=== PATIENT | male | born 1985 | race Caucasian/White ===

== ENCOUNTER 2018-02-03 00:09 | Emergency (ER) | payer MEDICAID ==
--- NOTE | 2018-02-03 01:57 | EDM.PDOC ---
ED HPI GENERAL MEDICAL PROBLEM - General Chief Complaint: Abdominal Pain Stated Complaint: ABDOMINAL PAIN Time Seen by Provider: 02/03/18 01:40 Source of Information: Reports: Patient, Family History Limitations: Reports: No Limitations - History of Present Illness INITIAL COMMENTS - FREE TEXT/NARRATIVE: 32-year-old male who is been having recurring abdominal pain for the past 2 months. He has had workups and testing including labs, was started on Paxil and Xanax several days ago. Tonight when he was really worked up he took a Xanax and he was feeling better by the time he got to the emergency room. No nausea or vomiting. Mostly a cramping sensation of the abdomen. Bowels are active but not diarrhea. No fevers or chills, no back pain. Onset: Unknown/Unsure Severity: Moderate Associated Symptoms: Reports: Loss of Appetite, Malaise. Denies: Chest Pain, Cough, Nausea/Vomiting Epigastric Pain Score (Numeric/FACES): 4 - Related Data Allergies Allergy/AdvReac Type Severity Reaction Status Date / Time No Known Allergies Allergy Verified 02/03/18 01:28 Home Meds: Home Meds ALPRAZolam [Alprazolam] 0.5 tab PO TID PRN 02/03/18 [History] PARoxetine HCl [Paroxetine HCl] 10 mg PO DAILY 02/03/18 [History] Past Medical History Musculoskeletal History: Reports: Fracture Psychiatric History: Reports: Panic Attack - Infectious Disease History Infectious Disease History: Reports: Chicken Pox - Past Surgical History GI Surgical History: Reports: Hernia, Abdominal Social & Family History - Tobacco Use Smoking Status *Q: Current Every Day Smoker Years of Tobacco use: 15 Packs/Tins Daily: 0.5 - Caffeine Use Caffeine Use: Reports: None - Recreational Drug Use Recreational Drug Use: No ED ROS GENERAL - Review of Systems Review Of Systems: See Below Constitutional: Reports: Malaise. Denies: Fever, Chills Respiratory: Reports: Shortness of Breath Cardiovascular: Denies: Chest Pain GI/Abdominal: Reports: Abdominal Pain, Nausea. Denies: Constipation, Diarrhea, Vomiting : Reports: No Symptoms Musculoskeletal: Reports: No Symptoms Skin: Reports: No Symptoms Neurological: Reports: Dizziness. Denies: Headache Psychiatric: Reports: Anxiety ED EXAM, GI/ABD - Physical Exam Exam: See Below Exam Limited By: No Limitations General Appearance: Alert, No Apparent Distress Eyes: Bilateral: Normal Appearance Respiratory/Chest: No Respiratory Distress, Lungs Clear GI/Abdominal Exam: Soft, Other (Some tenderness across the epigastric area only , no guarding) Course - Vital Signs Last Recorded V/S: Last Vital Signs Temp 96.6 F 02/03/18 01:24 Pulse 71 02/03/18 01:24 Resp 18 02/03/18 01:24 BP 149/83 H 02/03/18 01:24 Pulse Ox 97 02/03/18 01:24 - Orders/Labs/Meds Orders: Active Orders 24 hr Category Date Time Status Abdomen Pelvis w Cont [CT] Stat Exams 02/03/18 01:52 Taken Labs: Laboratory Tests 02/03/18 02/03/18 Range/Units 02:01 02:01 WBC 10.1 (4.5-11.0) K/uL RBC 4.96 (4.30-5.90) M/uL Hgb 14.1 (12.0-15.0) g/dL Hct 41.6 (40.0-54.0) % MCV 84 (80-98) fL MCH 28 (27-31) pg MCHC 34 (32-36) % Plt Count 268 (150-400) K/uL Neut % (Auto) 70 H (36-66) % Lymph % (Auto) 16 L (24-44) % [place] % (Auto) 12 H (2-6) % Eos % (Auto) 2 (2-4) % Baso % (Auto) 0 (0-1) % ESR 10 (0-20) mm/hr C-Reactive Protein 0.09 (0.0-0.3) mg/dL Meds: Medications Discontinued Medications Generic Name Dose Route Start Last Admin Trade Name Freq PRN Reason Stop Dose Admin Sodium Chloride 1,000 mls @ 500 mls/hr 02/03/18 02:00 02/03/18 02:10 Normal Saline IV 500 mls/hr ASDIRECTED SIS Administration Sodium Chloride 80 mls @ 3 mls/sec 02/03/18 02:00 02/03/18 02:21 Normal Saline IV 3 mls/sec ASDIRECTED SIS Administration Iopamidol 126 ml 02/03/18 02:00 02/03/18 02:21 Isovue-300 (61%) IV 126 ml . DIRECTED SIS Administration Sodium Chloride 10 ml 02/03/18 01:58 02/03/18 02:21 Saline Flush FLUSH 10 ml ASDIRECTED PRN Administration Keep Vein Open - Re-Assessments/Exams Free Text/Narrative Re-Assessment/Exam: 02/03/18 03:06 After discussion of the treatments and previous workups, we agreed to draw a CRP , sedimentation rate, and run a CT scan of the abdomen and pelvis with IV contrast. He was given 1 L of normal saline while the tests were drawn. He remained fairly comfortable and had no recurrence of the pain. His labs and CT were completely normal. Departure - Departure Time of Disposition: 03:15 Disposition: Home, Self-Care 01 Condition: Good Clinical Impression: Anxiety Abdominal pain Qualifiers: Abdominal location: upper abdomen, unspecified Qualified Code(s): R10.10 - Upper abdominal pain, unspecified - Discharge Information Instructions: Panic Attacks, [id number] Referrals: Chai Bryant [employer] [Primary Care Provider] - Forms: ED Department Discharge Care Plan Goals: Continue with your current medications and diet as tolerated. Recheck next week to discuss an EGD or other options if symptoms are not improving satisfactorily. - My Orders Last 24 Hours: My Active Orders 02/03/18 01:52 Abdomen Pelvis w Cont [CT] Stat - Assessment/Plan Last 24 Hours: My Active Orders 02/03/18 01:52 Abdomen Pelvis w Cont [CT] Stat
[2018-02-03] MEDS ORDERED: Sodium Chloride 0.9% 10 ML Syringe FLUSH PRN (01:58)
[2018-02-03] MEDS ORDERED: Iopamidol 612 MG/ML 150 ML Bottle IV SCH (02:00)
[2018-02-03] MEDS ORDERED: Sodium Chloride 0.9% 1,000 ML IV SCH (02:00)
[2018-02-03] MEDS ORDERED: Sodium Chloride 0.9% 80 ML IV SCH (02:00)
== END 2018-02-03 03:25 | disposition home or self-care (01) ==
LOC: JP.ED 00:09
DX: R10.13 Epigastric pain (principal); R10.10 Upper abdominal pain, unspecified; F41.9 Anxiety disorder, unspecified; F17.210 Nicotine dependence, cigarettes, uncomplicated
CPT/HCPCS: 36415; 74177; 85025; 85651; 86140; 96360; 99284; J7030; J7040; J7050

== ENCOUNTER 2018-03-01 15:55 | Emergency (ER) | payer MEDICAID ==
--- NOTE | 2018-03-01 16:24 | EDM.PDOC ---
ED HPI GENERAL MEDICAL PROBLEM - General Chief Complaint: Chest Pain Stated Complaint: CHEST PAINS Time Seen by Provider: 03/01/18 16:05 Source of Information: Reports: Patient, Old Records, RN History Limitations: Reports: No Limitations - History of Present Illness INITIAL COMMENTS - FREE TEXT/NARRATIVE: 32 yo male 1 ppd smoker with a strong FHx of CAD presents with sharp L sided chest pain for a couple hrs. In the past when he has had this it has been attributed to anxiety and he was prescribed Xanax. He took some before coming to the ER today and is improved, but not resolved of this pain. 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 No change with pressing on chest or deep breathing. 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) (Xanax x 2 doses) - Related Data Allergies Allergy/AdvReac Type Severity Reaction Status Date / Time No Known Allergies Allergy Verified 03/01/18 16:11 Home Meds: Home Meds ALPRAZolam [Alprazolam] 0.5 tab PO TID PRN 02/03/18 [History] PARoxetine HCl [Paroxetine HCl] 10 mg PO BEDTIME 02/03/18 [History] Past Medical History Musculoskeletal History: Reports: Fracture Psychiatric History: Reports: Panic Attack - Infectious Disease History Infectious Disease History: Reports: Chicken Pox - Past Surgical History GI Surgical History: Reports: Hernia, Abdominal Social & Family History - Tobacco Use Smoking Status *Q: Current Every Day Smoker Years of Tobacco use: 15 Packs/Tins Daily: 0.5 - Caffeine Use Caffeine Use: Reports: None - Recreational Drug Use Recreational Drug Use: No ED ROS GENERAL - Review of Systems Review Of Systems: See Below Constitutional: Reports: No Symptoms HEENT: Reports: No Symptoms Respiratory: Reports: No Symptoms Cardiovascular: Reports: Chest Pain GI/Abdominal: Reports: No Symptoms : Reports: No Symptoms Musculoskeletal: Reports: No Symptoms Skin: Reports: No Symptoms Neurological: Reports: No Symptoms Psychiatric: Reports: Other (not anxious now after Xanax) ED EXAM, GENERAL - Physical Exam Exam: See Below Exam Limited By: No Limitations General Appearance: Alert, WD/WN, No Apparent Distress Eye Exam: Bilateral Eye: Normal Inspection Ears: Normal External Exam, Normal Canal, Hearing Grossly Normal, Normal TMs Ear Exam: Bilateral Ear: Auricle Normal, Canal Normal Nose: Normal Inspection, Normal Mucosa, No Blood Throat/Mouth: Normal Inspection, Normal Lips, Normal Oropharynx, Normal Voice, No Airway Compromise Head: Atraumatic, Normocephalic Neck: Normal Inspection Respiratory/Chest: No Respiratory Distress, Lungs Clear, Normal Breath Sounds, No Accessory Muscle Use, Chest Non-Tender Cardiovascular: Regular Rate, Rhythm, No Edema GI/Abdominal: Normal Bowel Sounds, Soft, Non-Tender, No Distention Extremities: Normal Inspection, Normal Range of Motion, Non-Tender, No Pedal Edema Neurological: Alert, Oriented, CN II-XII Intact, Normal Cognition, No Motor/ Sensory Deficits Psychiatric: Normal Affect, Normal Mood Skin Exam: Warm, Dry, Intact, Normal Color, No Rash Lymphatic: No Adenopathy EKG INTERPRETATION EKG Date: 03/01/18 Time: 16:10 Rhythm: NSR Rate (Beats/Min): 69 Squire: Normal P-Wave: Present QRS: Normal ST-T: Normal QT: Normal Comparison: NA - No Prior EKG Course - Vital Signs Last Recorded V/S: Last Vital Signs Temp 35.1 C L 03/01/18 16:40 Pulse 69 03/01/18 16:40 Resp 13 03/01/18 16:40 BP 127/79 03/01/18 16:40 Pulse Ox 98 03/01/18 16:40 - Orders/Labs/Meds Orders: Active Orders 24 hr Category Date Time Status Cardiac Monitoring [RC] .As Directed Care 03/01/18 16:12 Active EKG Documentation Completion [RC] ASDIRECTED Care 03/01/18 16:12 Active EKG 12 Lead [EK] Routine Ther 03/01/18 16:12 Ordered Labs: Laboratory Tests 03/01/18 Range/Units 16:19 Troponin I < 0.017 (0.000-0.056) ng/mL Departure - Departure Time of Disposition: 17:15 Disposition: Home, Self-Care 01 Condition: Good Clinical Impression: Atypical chest pain Referrals: Chai Bryant NP [Primary Care Provider] - Forms: ED Department Discharge - My Orders Last 24 Hours: My Active Orders 03/01/18 16:12 Cardiac Monitoring [RC] .As Directed EKG Documentation Completion [RC] ASDIRECTED EKG 12 Lead [EK] Routine - Assessment/Plan Last 24 Hours: My Active Orders 03/01/18 16:12 Cardiac Monitoring [RC] .As Directed EKG Documentation Completion [RC] ASDIRECTED EKG 12 Lead [EK] Routine
[2018-03-01] MEDS ORDERED: Aspirin 81 MG Tab.Chew PO ONE (17:09)
== END 2018-03-01 17:30 | disposition home or self-care (01) ==
LOC: JP.ED 15:55
DX: R07.89 Other chest pain (principal); F17.210 Nicotine dependence, cigarettes, uncomplicated; Z79.899 Other long term (current) drug therapy
CPT/HCPCS: 36415; 84484; 93005; 99285; A9270

== ENCOUNTER 2018-03-21 07:52 | Day surgery (SDC) | payer MEDICAID ==
[2018-03-21] MEDS ORDERED: Scopolamine 1.5 MG Transdermal Patch TOP ONE (08:15)
[2018-03-21] MEDS ORDERED: Dextrose 5%-Lactated Ringers 1,000 ML IV SCH (08:30)
[2018-03-21] MEDS ORDERED: cefOXitin 2 GM in Sodium Chloride 0.9% 50 ML IV ONE (09:30)
[2018-03-21] MEDS ORDERED: Bupivacaine 0.5% 50 ML MDV ONE (10:26)
[2018-03-21] MEDS ORDERED: Lidocaine 1% with EPINEPHrine 1:100,000 50 ML MDV ONE (10:27)
[2018-03-21] MEDS ORDERED: fentaNYL 250 MCG/5 ML SDV ONE ×2 (10:46→12:16)
[2018-03-21] MEDS ORDERED: Midazolam 1 MG/ML 2 ML SDV ONE (10:46)
[2018-03-21] MEDS ORDERED: Dexamethasone 4 MG/ML SDV ONE (12:04)
[2018-03-21] MEDS ORDERED: Neostigmine Methylsulfate 1 MG/ML 5 ML Syringe ONE (12:04)
[2018-03-21] MEDS ORDERED: Propofol 200 MG/20 ML SDV ONE (12:04)
[2018-03-21] MEDS ORDERED: Ondansetron 4 MG/2 ML SDV ONE (12:04)
[2018-03-21] MEDS ORDERED: Rocuronium 50 MG/5 ML Vial ONE (12:04)
[2018-03-21] MEDS ORDERED: Glycopyrrolate 0.2 MG/ML 5 ML MDV ONE (12:04)
[2018-03-21] MEDS ORDERED: hydrOXYzine HCl 100 MG/2 ML SDV IM ONE (12:57)
[2018-03-21] MEDS ORDERED: ALPRAZolam 0.5 MG Tab PO PRN (13:23)
[2018-03-21] MEDS ORDERED: Docusate Sodium 100 MG Cap PO PRN (13:24)
[2018-03-21] MEDS ORDERED: Ondansetron 4 MG/2 ML SDV IVPUSH PRN (13:24)
[2018-03-21] MEDS ORDERED: fentaNYL 100 MCG/2 ML SDV IVPUSH PRN (13:24)
--- NOTE | 2018-03-21 14:25 | OR ---
DATE OF PROCEDURE: 03/21/2018 PREOPERATIVE DIAGNOSIS: Chronic cholecystitis with biliary dyskinesia. POSTOPERATIVE DIAGNOSIS: Chronic cholecystitis with biliary dyskinesia. PROCEDURE: Laparoscopic cholecystectomy. SURGEON: Alok Delgadillo MD. ANESTHESIA: General Endotracheal. INDICATION: This 32-year-old white male has been complaining of intermittent episodes of epigastric and right upper quadrant abdominal pain radiating to his back. He had an abdominal ultrasound which was unremarkable. A CCK-stimulated HIDA scan was abnormal with an ejection fraction of only 27%, consistent with biliary dyskinesia and chronic cholecystitis. He is admitted for a laparoscopic cholecystectomy. I counseled him for surgery including risks and alternatives, and he gave his informed consent to proceed. DESCRIPTION OF PROCEDURE: After adequate general endotracheal anesthesia was obtained, the patient's abdomen was prepped and draped in the usual sterile fashion. Time-out was held. An infraumbilical semicircular incision was made. Under direct vision, a 12-mm port was introduced into the abdomen using the Optiview technique. The camera was introduced into the abdomen and the abdomen was insufflated to a pressure of 20 mmHg with carbon dioxide. No evidence of intraabdominal injury was seen. Under direct vision, a 12-mm port was placed in the epigastrium and a 5-mm port was placed in the right lower quadrant. The abdomen was examined, there were some adhesions in the right lower quadrant. The appendix appeared unremarkable. There were also adhesions of omentum to the gallbladder consistent with chronic cholecystitis. The omentum was dissected free from the gallbladder. The cystic duct and arteries were dissected free. They were each clipped separately up in the gallbladder and three times proximally for the duct and twice for the artery. They were then divided up near the gallbladder. The gallbladder was then dissected free from the gallbladder bed using Bovie electrocautery. The gallbladder was placed in a sample retrieval bag and elevated up through the anterior abdominal wall via the epigastric port site. It was cultured and delivered from the field. The epigastric port was reduced back into the abdomen. The gallbladder bed was irrigated and suctioned dry. All looked well. The fascial closure device was used to place an 0 Vicryl stitch in the epigastric fascial defect. The infraumbilical port was removed with an interrupted stitch of 0 Vicryl used to close this fascial defect. We evacuated as much CO2 as we could from the abdomen via the 5-mm port site in the right lower quadrant and then this port was removed. Lidocaine 1% with epinephrine in a 50:50 mixed with 0.5% Marcaine was infiltrated about all incisions. 4-0 Vicryl, using a subcuticular stitch, was placed to approximate the skin of the incisions. Dermabond was applied. The anesthesia was reversed. He was extubated and brought to recovery room in good condition. Alok Delgadillo MD /[id number] MTDD
[2018-03-21] MEDS: Acetaminophen/HYDROcodone 325-5 MG Tab PO PRN ×2 (16:37→21:53)
[2018-03-21] MEDS ORDERED: PARoxetine 20 MG Tab PO SCH (21:00)
[2018-03-22] MEDS: Acetaminophen/HYDROcodone 325-5 MG Tab PO PRN ×2 (06:00→10:07)
--- NOTE | 2018-03-22 06:39 | PCM.SURGPN ---
- General Info Date of Service: 03/22/18 Date of Surgery/Procedure: 03/21/18 POD#: 1 Functional Status: Reports: Tolerating Diet, Ambulating, Urinating, Incentive Spirometry. Denies: Pain Controlled - Review of Systems General: Reports: No Symptoms HEENT: Reports: No Symptoms Pulmonary: Reports: No Symptoms Cardiovascular: Reports: No Symptoms Gastrointestinal: Reports: Abdominal Pain (Pain associated with epigastric incision. ) Genitourinary: Reports: No Symptoms Musculoskeletal: Reports: No Symptoms Skin: Reports: No Symptoms Neurological: Reports: No Symptoms Psychiatric: Reports: No Symptoms - Patient Data Vitals - Most Recent: Last Vital Signs Temp 96.5 F 03/22/18 00:15 Pulse 67 03/22/18 00:15 Resp 16 03/22/18 00:15 BP 124/63 03/22/18 00:15 Pulse Ox 96 03/22/18 00:15 Weight - Most Recent: 175 lb I&O - Last 24 Hours: Intake & Output 03/21/18 03/21/18 03/22/18 14:59 22:59 06:59 Intake Total 275 620 Balance 275 620 Lab Results Last 24 Hrs: Laboratory Results - last 24 hr 03/21/18 03/22/18 03/22/18 Range/Units 17:00 05:11 05:11 WBC 10.4 10.1 (4.5-11.0) K/uL RBC 5.15 4.96 (4.30-5.90) M/uL Hgb 14.5 13.9 (12.0-15.0) g/dL Hct 43.5 42.2 (40.0-54.0) % MCV 85 85 (80-98) fL MCH 28 28 (27-31) pg MCHC 33 33 (32-36) % Plt Count 323 328 (150-400) K/uL Total Bilirubin 0.5 (0.2-1.0) mg/dL Alkaline Phosphatase 66 (46-116) U/L Hemanth Results Last 24 Hrs: Microbiology 03/21/18 12:56 Gram Stain - Final Gallbladder Med Orders - Current: Current Medications Hydrocodone Bitart/Acetaminophen ([place] 325-5 Mg) 2 tab PO Q4H PRN PRN Reason: Pain (moderate 4-6) Last Admin: 03/22/18 06:00 Dose: 2 tab Alprazolam (Xanax) 0.5 - 1 mg PO TID PRN PRN Reason: Anxiety Last Admin: 03/21/18 21:58 Dose: 0.5 mg Docusate Sodium (Colace) 100 mg PO BID PRN PRN Reason: Congestion Fentanyl (Sublimaze) 50 mcg IVPUSH Q1H PRN PRN Reason: Pain (severe 7-10) Dextrose/Lactated Ringer's (Dextrose 5%-Lactated Ringers) 1,000 mls @ 100 mls/ hr IV ASDIRECTED [facility] Last Admin: 03/21/18 08:54 Dose: 100 mls/hr Ondansetron HCl (Zofran) 4 mg IVPUSH Q4H PRN PRN Reason: Nausea/Vomiting Pantoprazole Sodium (Protonix) 40 mg PO DAILY@0730 [facility] Paroxetine HCl (Paxil) 10 mg PO BEDTIME [facility] Last Admin: 03/21/18 21:09 Dose: Not Given Discontinued Medications Bupivacaine HCl (Marcaine 0.5%) Confirm Administered Dose 50 ml .ROUTE .STK-MED ONE Stop: 03/21/18 10:27 Last Admin: 03/21/18 12:22 Dose: 10 ml Dexamethasone (Dexamethasone) Confirm Administered Dose 4 mg .ROUTE .STK-MED ONE Stop: 03/21/18 12:05 Fentanyl (Sublimaze) Confirm Administered Dose 250 mcg .ROUTE .STK-MED ONE Stop: 03/21/18 10:47 Fentanyl (Sublimaze) Confirm Administered Dose 250 mcg .ROUTE .STK-MED ONE Stop: 03/21/18 12:17 Glycopyrrolate (Robinul) Confirm Administered Dose 1 mg .ROUTE .STK-MED ONE Stop: 03/21/18 12:05 Hydroxyzine HCl (Vistaril) 75 mg IM ONETIME ONE Stop: 03/21/18 12:58 Last Admin: 03/21/18 13:13 Dose: 75 mg Cefoxitin Sodium 2 gm/ Sodium (Chloride) 50 mls @ 100 mls/hr IV ONETIME ONE Stop: 03/21/18 09:59 Last Admin: 03/21/18 12:17 Dose: 100 mls/hr Lidocaine/Epinephrine (Xylocaine 1% With Epinephrine 1:100,000) Confirm Administered Dose 50 ml .ROUTE .STK-MED ONE Stop: 03/21/18 10:28 Last Admin: 03/21/18 12:23 Dose: 10 ml Midazolam HCl (Versed 1 Mg/Ml) Confirm Administered Dose 2 mg .ROUTE .STK-MED ONE Stop: 03/21/18 10:47 Neostigmine Methylsulfate (Neostigmine) Confirm Administered Dose 5 mg .ROUTE .STK-MED ONE Stop: 03/21/18 12:05 Ondansetron HCl (Zofran) Confirm Administered Dose 4 mg .ROUTE .STK-MED ONE Stop: 03/21/18 12:05 Propofol (Diprivan 20 Ml) Confirm Administered Dose 200 mg .ROUTE .STK-MED ONE Stop: 03/21/18 12:05 Rocuronium [place] (Zemuron) Confirm Administered Dose 50 mg .ROUTE .STK-MED ONE Stop: 03/21/18 12:05 Scopolamine (Transderm-Scop) 1.5 mg TOP ONETIME ONE Stop: 03/21/18 08:16 Last Admin: 03/21/18 08:05 Dose: 1.5 mg - Exam Wound/Incisions: Healing Well, No Drainage General: Alert, Oriented, Cooperative, Mild Distress Lungs: Clear to Auscultation, Normal Respiratory Effort Cardiovascular: Regular Rate, Regular Rhythm GI/Abdominal Exam: Normal Bowel Sounds, Soft, No Distention Extremities: Normal Inspection Skin: Warm, Dry, Intact Psy/Mental Status: Alert, Normal Affect, Normal Mood - Problem List & Annotations (1) Abdominal pain SNOMED Code(s): 64740630 Code(s): R10.9 - UNSPECIFIED ABDOMINAL PAIN Status: Acute Current Visit: No - Problem List Review Problem List Initiated/Reviewed/Updated: Yes - My Orders Last 24 Hours: Active Orders 24 hr Category Date Time Status Patient Status [ADT] Routine ADT 03/21/18 13:24 Active Ambulate [RC] ASDIRECTED Care 03/21/18 13:24 Active Antiembolic Devices [RC] .Routine Care 03/21/18 13:29 Active Dorsiflex/Plantar flex x 10 [RC] QSHIFT Care 03/21/18 13:24 Active Head of Bed Elevation [RC] CONTINUOUS Care 03/21/18 13:24 Active Intake and Output [RC] Q12H Care 03/21/18 13:27 Active Notify Provider Vital Signs [RC] PRN Care 03/21/18 13:27 Active Oxygen Therapy [RC] PRN Care 03/21/18 13:24 Active Pneumonia Education [RC] .PRN Care 03/21/18 13:24 Active RT Incentive Spirometry [RC] Q1HWA Care 03/21/18 13:24 Active Turn, Cough, Deep Breathe [RC] Q1HWA Care 03/21/18 13:24 Active Up to Chair [RC] TIDMEALS Care 03/21/18 13:24 Active VTE/DVT Education [RC] .PRN Care 03/21/18 13:29 Active Vital Signs [RC] PER UNIT ROUTINE Care 03/21/18 13:24 Active Respiratory Care Assess and Treatment [CONS] Routine Cons 03/21/18 13:24 Active Advance Diet Instructions [DIET] Diet 03/21/18 Lunch Active CULTURE ANAEROBIC [RM] Routine Lab 03/21/18 12:56 Received CULTURE WOUND + SMEAR [RM] Routine Lab 03/21/18 12:56 Results ALPRAZolam [Xanax] Med 03/21/18 13:23 Active 0.5 - 1 mg PO TID PRN Acetaminophen/HYDROcodone [[place] 325-5 MG] Med 03/21/18 13:24 Active 2 tab PO Q4H PRN Dextrose 5%-Lactated Ringers 1,000 ml Med 03/21/18 08:30 Active IV ASDIRECTED Docusate Sodium [Colace] Med 03/21/18 13:24 Active 100 mg PO BID PRN Ketorolac [Toradol] Med 03/22/18 06:45 Ordered 10 mg PO Q6H Ondansetron [Zofran] Med 03/21/18 13:24 Active 4 mg IVPUSH Q4H PRN PARoxetine [Paxil] Med 03/21/18 21:00 Active 10 mg PO BEDTIME Pantoprazole [ProTONIX] Med 03/22/18 07:30 Active 40 mg PO DAILY@0730 fentaNYL [Sublimaze] Med 03/21/18 13:24 Active 50 mcg IVPUSH Q1H PRN Abdominal Binder [OM.PC] Per Unit Routine Oth 03/21/18 13:27 Ordered DVT/VTE Prophylaxis Reflex [OM.PC] Routine Oth 03/21/18 13:24 Ordered Oral Care [OM.PC] BID Oth 03/21/18 13:30 Ordered Oral Care [OM.PC] BID Oth 03/22/18 13:30 Ordered Oral Care [OM.PC] BID Oth 03/23/18 13:30 Ordered Oral Care [OM.PC] BID Oth 03/24/18 13:30 Ordered Oral Care [OM.PC] BID Oth 03/25/18 13:30 Ordered Oral Care [OM.PC] BID Oth 03/26/18 13:30 Ordered Oral Care [OM.PC] BID Oth 03/27/18 13:30 Ordered Oral Care [OM.PC] BID Oth 03/28/18 13:30 Ordered Oral Care [OM.PC] BID Oth 03/29/18 13:30 Ordered Oral Care [OM.PC] BID Oth 03/30/18 13:30 Ordered Sequential Compression Device [OM.PC] Routine Oth 03/21/18 08:00 Ordered Sequential Compression Device [OM.PC] Routine Oth 03/21/18 13:24 Ordered Resuscitation Status Routine Resus Stat 03/21/18 13:24 Ordered Medication Orders Hydrocodone Bitart/Acetaminophen ([place] 325-5 Mg) 2 tab PO Q4H PRN PRN Reason: Pain (moderate 4-6) Last Admin: 03/22/18 06:00 Dose: 2 tab Admin: 03/21/18 21:53 Dose: 2 tab Admin: 03/21/18 16:37 Dose: 2 tab Alprazolam (Xanax) 0.5 - 1 mg PO TID PRN PRN Reason: Anxiety Last Admin: 03/21/18 21:58 Dose: 0.5 mg Docusate Sodium (Colace) 100 mg PO BID PRN PRN Reason: Congestion Fentanyl (Sublimaze) 50 mcg IVPUSH Q1H PRN PRN Reason: Pain (severe 7-10) Dextrose/Lactated Ringer's (Dextrose 5%-Lactated Ringers) 1,000 mls @ 100 mls/ hr IV ASDIRECTED SIS Last Admin: 03/21/18 08:54 Dose: 100 mls/hr Ondansetron HCl (Zofran) 4 mg IVPUSH Q4H PRN PRN Reason: Nausea/Vomiting Pantoprazole Sodium (Protonix) 40 mg PO DAILY@0730 [facility] Paroxetine HCl (Paxil) 10 mg PO BEDTIME [facility] Last Admin: 03/21/18 21:09 Dose: Not Given - Assessment Assessment (Free Text/Narrative):: He appears to be doing well but complains of severe pain at his epigastric incision site. His labs and vital signs appear well. - Plan Plan (Free Text/Narrative):: Try Toradol to see if he can achieve good pain relief and be discharged.
[2018-03-22] MEDS ORDERED: Ketorolac 10 MG Tab PO SCH ×2 (07:00→08:00)
[2018-03-22] MEDS ORDERED: Pantoprazole 40 MG Tab.CR PO SCH (07:30)
--- NOTE | 2018-03-23 13:26 | PCM.DCSUM1 ---
Discharge Summary - Hospital Course Free Text/Narrative:: This 32 year old white male complains of upper abdominal pain which radiates into his back associated with nausea. Food makes it worse. Abdominal ultrasound was unremarkable. A CCK stimulated HIDA scan was abnormal with an ejection fraction of 27%. He was admitted for a laparoscopic cholecystectomy. He was kept over night and the next was doing fine and was discharged. Brief History: See above narrative. - Discharge Data Discharge Date: 03/22/18 Discharge Disposition: Home, Self-Care 01 Condition: Stable - Discharge Diagnosis/Problem(s) (1) Abdominal pain SNOMED Code(s): 93358191 ICD Code: R10.9 - UNSPECIFIED ABDOMINAL PAIN Status: Resolved - Patient Summary/Data Operative Procedure(s) Performed: Laparoscopic cholecystectomy. Consults: Consultations 03/21/18 13:24 Respiratory Care Assess and Treatment [CONS] Routine Comment: Physician Instructions: Post-Op Pneumonia Prevention Hospital Course: See above narrative. - Patient Instructions Diet: Regular Diet as Tolerated Activity: As Tolerated Driving: Do Not Drive Showering/Bathing: May Shower Wound/Incision Care: Keep Operative Site/Wound Site Clean and Dry Notify Provider of: Fever, Increased Pain, Swelling and Redness, Nausea and/or Vomiting - Discharge Plan Prescriptions/Med Rec: Ketorolac Tromethamine 10 mg PO Q6HR 5 Days #19 tablet Home Medications: Home Meds PARoxetine HCl [Paroxetine HCl] 10 mg PO BEDTIME 02/03/18 [History] ALPRAZolam [Xanax] 0.5 - 1 mg PO TID PRN 03/06/18 [History] Omeprazole 20 mg PO DAILY 03/06/18 [History] Acetaminophen [Tylenol] 325 mg PO Q4H PRN 03/21/18 [History] Ketorolac Tromethamine 10 mg PO Q6HR 5 Days #19 tablet 03/22/18 [Rx] Patient Handouts: Laparoscopic Cholecystectomy, Constipation, Adult, Easy-to- Read Referrals: Alok Delgadillo MD [Physician] - 04/06/18 1:00 pm (PLEASE ARRIVE 15 MINUTES EARLY FOR APPOINTMENT) - Discharge Summary/Plan Comment DC Time >30 min.: Yes Discharge Summary/Plan Comment: See above narrative. I will see him in a couple of weeks or earlier PRN. - Patient Data Vitals - Most Recent: Last Vital Signs Temp 98.2 F 03/22/18 10:42 Pulse 72 03/22/18 10:42 Resp 16 03/22/18 10:42 BP 136/78 03/22/18 10:42 Pulse Ox 97 03/22/18 10:42 Weight - Most Recent: 175 lb [facility]ER[facility] Results - Last 24 hrs: Microbiology 03/21/18 12:56 Anaerobic Culture - Preliminary Gallbladder NO GROWTH AFTER 1 DAY 03/21/18 12:56 Gram Stain - Final Gallbladder Wound Culture - Preliminary NO GROWTH AFTER 1 DAY Med Orders - Current: Current Medications Discontinued Medications Hydrocodone Bitart/Acetaminophen (Rolla 325-5 Mg) 2 tab PO Q4H PRN PRN Reason: Pain (moderate 4-6) Last Admin: 03/22/18 10:07 Dose: 2 tab Alprazolam (Xanax) 0.5 - 1 mg PO TID PRN PRN Reason: Anxiety Last Admin: 03/21/18 21:58 Dose: 0.5 mg Bupivacaine HCl (Marcaine 0.5%) Confirm Administered Dose 50 ml .ROUTE .STK-MED ONE Stop: 03/21/18 10:27 Last Admin: 03/21/18 12:22 Dose: 10 ml Dexamethasone (Dexamethasone) Confirm Administered Dose 4 mg .ROUTE .STK-MED ONE Stop: 03/21/18 12:05 Docusate Sodium (Colace) 100 mg PO BID PRN PRN Reason: Congestion Last Admin: 03/22/18 08:40 Dose: 100 mg Fentanyl (Sublimaze) Confirm Administered Dose 250 mcg .ROUTE .STK-MED ONE Stop: 03/21/18 10:47 Fentanyl (Sublimaze) Confirm Administered Dose 250 mcg .ROUTE .STK-MED ONE Stop: 03/21/18 12:17 Fentanyl (Sublimaze) 50 mcg IVPUSH Q1H PRN PRN Reason: Pain (severe 7-10) Last Admin: 03/22/18 07:38 Dose: 50 mcg Glycopyrrolate (Robinul) Confirm Administered Dose 1 mg .ROUTE .STK-MED ONE Stop: 03/21/18 12:05 Hydroxyzine HCl (Vistaril) 75 mg IM ONETIME ONE Stop: 03/21/18 12:58 Last Admin: 03/21/18 13:13 Dose: 75 mg Cefoxitin Sodium 2 gm/ Sodium (Chloride) 50 mls @ 100 mls/hr IV ONETIME ONE Stop: 03/21/18 09:59 Last Admin: 03/21/18 12:17 Dose: 100 mls/hr Dextrose/Lactated Ringer's (Dextrose 5%-Lactated Ringers) 1,000 mls @ 100 mls/ hr IV ASDIRECTED [facility] Last Admin: 03/21/18 08:54 Dose: 100 mls/hr Ketorolac Tromethamine (Toradol) 10 mg PO Q6H [facility] Stop: 03/27/18 08:01 Last Admin: 03/22/18 08:38 Dose: 10 mg Lidocaine/Epinephrine (Xylocaine 1% With Epinephrine 1:100,000) Confirm Administered Dose 50 ml .ROUTE .STK-MED ONE Stop: 03/21/18 10:28 Last Admin: 03/21/18 12:23 Dose: 10 ml Midazolam HCl (Versed 1 Mg/Ml) Confirm Administered Dose 2 mg .ROUTE .STK-MED ONE Stop: 03/21/18 10:47 Neostigmine Methylsulfate (Neostigmine) Confirm Administered Dose 5 mg .ROUTE .STK-MED ONE Stop: 03/21/18 12:05 Ondansetron HCl (Zofran) Confirm Administered Dose 4 mg .ROUTE .STK-MED ONE Stop: 03/21/18 12:05 Ondansetron HCl (Zofran) 4 mg IVPUSH Q4H PRN PRN Reason: Nausea/Vomiting Pantoprazole Sodium (Protonix) 40 mg PO DAILY@0730 [facility] Last Admin: 03/22/18 07:41 Dose: 40 mg Paroxetine HCl (Paxil) 10 mg PO BEDTIME [facility] Last Admin: 03/21/18 21:09 Dose: Not Given Propofol (Diprivan 20 Ml) Confirm Administered Dose 200 mg .ROUTE .STK-MED ONE Stop: 03/21/18 12:05 Rocuronium [place] (Zemuron) Confirm Administered Dose 50 mg .ROUTE .STK-MED ONE Stop: 03/21/18 12:05 Scopolamine (Transderm-Scop) 1.5 mg TOP ONETIME ONE Stop: 03/21/18 08:16 Last Admin: 03/21/18 08:05 Dose: 1.5 mg
== END 2018-03-22 14:15 | disposition home or self-care (01) ==
LOC: JP.SDS 07:52 → JP.MS 13:24 → JP.SDS 03-22 14:15
PROVIDERS: ATTEND Surgery
DX: K81.1 Chronic cholecystitis (principal); F41.9 Anxiety disorder, unspecified; J30.9 Allergic rhinitis, unspecified; Z79.899 Other long term (current) drug therapy; F17.210 Nicotine dependence, cigarettes, uncomplicated; F41.1 Generalized anxiety disorder; Z83.79 Family history of other diseases of the digestive system
CPT/HCPCS: 36415; 47562; 82247; 84075; 85027; 87070; 87075; 87205; 88304; A9270; J0694; J1100; J2405; J2704; J2710; J3010; J3410; J7042; J7050; J2250

== ENCOUNTER 2022-11-28 02:25 | Emergency (ER) | payer MEDICAID ==
[2022-11-28] MEDS ORDERED: Lactated Ringers 1,000 ML IV ONE (03:06)
[2022-11-28] MEDS ORDERED: Ondansetron 4 MG/2 ML SDV IVPUSH ONE (03:06)
[2022-11-28] MEDS ORDERED: Ketorolac 30 MG/ML SDV IVPUSH ONE (03:07)
[2022-11-28] MEDS ORDERED: Acetaminophen 500 MG Tab PO ONE (03:29)
[2022-11-28 03:57] LABS: CORONAVIRUS COVID-19 NAA NEGATIVE (NEGATIVE)
[2022-11-28] MEDS ORDERED: Albuterol/Ipratropium 3.0-0.5 MG/3 ML Neb Soln NEB ONE (05:23)
[2022-11-28] MEDS ORDERED: Levofloxacin 250 MG Tab PO ONE (05:25)
== END 2022-11-28 06:07 | disposition home or self-care (01) ==
LOC: JP.ED 02:25
DX: J18.9 Pneumonia, unspecified organism (principal); F17.200 Nicotine dependence, unspecified, uncomplicated; Z57.5 Occupational exposure to toxic agents in other industries; Z20.822 Contact with and (suspected) exposure to COVID-19
CPT/HCPCS: 0241U; 36415; 71045; 80048; 80076; 81001; 82550; 82803; 83605; 84145; 85025; 93005; 94640; 96361; 96374; 96375; 99285; A9270; J1885; J2405; J7120; 93010; 99283; J7620

== ENCOUNTER 2024-12-25 13:17 | Emergency (ER) | payer MEDICAID ==
[2024-12-25] MEDS: Aspirin 81 MG Tab.Chew PO ONE (13:48)
[2024-12-25 13:53] LABS: BASOPHILS ABSOLUTE AUTO 0.04 K/uL (0.00-0.10); BASOPHILS PERCENT AUTO 0.6 % (0.1-1.3); EOSINOPHILS ABSOLUTE AUTO 0.17 K/uL (0.00-0.40); EOSINOPHILS PERCENT AUTO 2.5 % (0.0-5.4); HEMOGLOBIN 14.6 g/dL (12.9-16.9); IMMATURE GRAN PERCENT AUTO 0.1 % (0.0-0.7); LYMPHOCYTES ABSOLUTE AUTO 1.85 K/uL (0.8-3.3); LYMPHOCYTES PERCENT AUTO 27.5 % (11.4-47.7); MEAN CORPUSCULAR HEMOGLOBIN 29.2 pg (31.6-35.5); MEAN CORPUSCULAR HGB CONC 34.8 g/dL (31.6-35.5); MONOCYTES ABSOLUTE AUTO 0.67 K/uL (0.20-0.90); NEUTROPHILS ABSOLUTE AUTO 3.99 K/uL (1.0-7.6); NEUTROPHILS PERCENT AUTO 59.3 % (40.0-78.1); PLATELET COUNT,PLT 263 K/uL (130-375); WHITE BLOOD CELL COUNT,WBC 6.7 K/uL (3.2-11.0)
[2024-12-25 14:06] LABS: IMMATURE GRAN ABSOLUTE AUTO 0.01 K/uL (0.00-0.23)
[2024-12-25 14:16] LABS: CALCIUM 9.5 mg/dL (8.5-10.1); EST CRCL DRUG DOSING (CG) 98.19 mL/min; POTASSIUM,K 3.9 mmol/L (3.6-5.2); TROPONIN I HIGH SENSITIVITY 8.1 pg/mL (<=60.3)
[2024-12-25 14:22] LABS: ANION GAP 12.9 mmol/L (5.0-14.0)
== END 2024-12-25 14:54 | disposition home or self-care (01) ==
LOC: JP.ED 13:17
DX: S29.011A Strain of muscle and tendon of front wall of thorax, initial encounter (principal); Z79.899 Other long term (current) drug therapy; X58.XXXA Exposure to other specified factors, initial encounter; Y93.89 Activity, other specified
CPT/HCPCS: 36415; 71046; 80048; 84484; 85025; 93005; 99285; A9270

== ENCOUNTER 2025-02-17 06:40 | Emergency (ER) | payer MEDICAID ==
[2025-02-17 07:04] LABS: BASOPHILS ABSOLUTE AUTO 0.04 K/uL (0.00-0.10); BASOPHILS PERCENT AUTO 0.5 % (0.1-1.3); EOSINOPHILS ABSOLUTE AUTO 0.29 K/uL (0.00-0.40); EOSINOPHILS PERCENT AUTO 3.7 % (0.0-5.4); HEMATOCRIT 42.9 % (38.4-49.7); HEMOGLOBIN 14.7 g/dL (12.9-16.9); IMMATURE GRAN PERCENT AUTO 0.3 % (0.0-0.7); LYMPHOCYTES ABSOLUTE AUTO 1.46 K/uL (0.8-3.3); LYMPHOCYTES PERCENT AUTO 18.6 % (11.4-47.7); MEAN CORPUSCULAR HEMOGLOBIN 29.5 pg (31.6-35.5); MEAN CORPUSCULAR HGB CONC 34.3 g/dL (31.6-35.5); MONOCYTES ABSOLUTE AUTO 0.56 K/uL (0.20-0.90); MONOCYTES PERCENT AUTO 7.2 % (3.3-12.6); NEUTROPHILS ABSOLUTE AUTO 5.46 K/uL (1.0-7.6); NEUTROPHILS PERCENT AUTO 69.7 % (40.0-78.1); PLATELET COUNT,PLT 262 K/uL (130-375); RED BLOOD CELL COUNT 4.99 M/uL (4.14-5.76); WHITE BLOOD CELL COUNT,WBC 7.8 K/uL (3.2-11.0)
[2025-02-17 07:05] LABS: IMMATURE GRAN ABSOLUTE AUTO 0.02 K/uL (0.00-0.23)
[2025-02-17 07:28] LABS: ANION GAP 11.9 mmol/L (5.0-14.0); CALCIUM 9.2 mg/dL (8.5-10.1); EST CRCL DRUG DOSING (CG) 107.78 mL/min; POTASSIUM,K 3.9 mmol/L (3.6-5.2); TROPONIN I HIGH SENSITIVITY 10.3 pg/mL (<=60.3)
== END 2025-02-17 08:46 | disposition home or self-care (01) ==
LOC: JP.ED 06:40
DX: F41.9 Anxiety disorder, unspecified (principal); R07.89 Other chest pain; F17.210 Nicotine dependence, cigarettes, uncomplicated; Z79.899 Other long term (current) drug therapy; Z90.49 Acquired absence of other specified parts of digestive tract
CPT/HCPCS: 36415; 80048; 84443; 84484; 85025; 93005; 99285